=== PATIENT | male | born 1945 | race Caucasian/White ===

== ENCOUNTER 2021-08-04 08:12 | Outpatient (CLI) | payer OTHER, SELFPAY ==
--- NOTE | 2021-08-04 08:23 | US_ITS ---
WS: [id number] RENAL ULTRASOUND HISTORY: STAGE 2B CHRONIC KIDNEY DZ COMPARISON: None available. TECHNIQUE: 2-D and color Doppler imaging of the kidney submitted. Right kidney: 10.6 cm x 3.7 cm x 3.8 cm. Normal size kidney. Echogenicity is equal to the adjacent liver. Cortical thinning and scarring in th e mid kidney. There are numerous cystic masses closely associated with the kidney. These are probably renal cysts but due to their large size exact location is difficult. These cystic masses do connect to the kidney. The largest from the mid kidney measures 12.6 x 9.2 x 10.4 cm. No solid component. No hydronephrosis. Left kidney: 10.9 cm x 5.4 cm x 6.9 cm. Normal size but increased echogenicity throughout the kidney. Numerous cystic masses are noted. The l argest cyst in the upper pole measures 4.5 x 5.1 x 3.5 cm. Aorta: Limited visualization. Urinary Bladder: Minimally distended urinary bladder. No intraluminal filling defect. US/US renal BI* [id number] IMPRESSION: 1. No hydronephrosis. 2. Numerous bilateral renal cysts. Some of these cysts or very large and conta in low-level echoes. 3. Mild medical renal disease LEFT kidney. 4. Focal scarring cortical thinning in the mid RIGHT kidney.
== END 2021-08-04 08:13 | disposition home or self-care (01) ==
PROVIDERS: Visit Provider Internal Medicine Nephrology
DX: N18.32 Chronic kidney disease, stage 3b (principal); Q61.02 Congenital multiple renal cysts
CPT/HCPCS: 76770

== ENCOUNTER 2021-09-09 11:57 | Outpatient (CLI) | payer OTHER, SELFPAY ==
--- NOTE | 2021-09-09 12:02 | CTR_ITS ---
PROCEDURE INFORMATION: Exam: CT Abdomen And Pelvis Without Contrast Exam date and time: 09/09/2021 12:23 PM Age: 76 years old Clinical indication: Condition or disease; Kidney or ureter condition; Chronic kidney disease or failure; Ckd stage 3 (moderate); Primary cancer: Rectal and throat cancer; Additional info: Stage 3b ckd, mob TECHNIQUE: Imaging protocol: Computed tomography of the abdomen and pelvis without contrast. Radiation optimization: All CT scans at this facility use at least one of these dose optimization techniques: automated exposure control; mA and/or kV adjustment per patient size (includes targeted exams where dose is matched to clinical indication); or iterative reconstruction. COMPARISON: US renal BI* [id number] 08/04/2021 8:56 AM RADIATION DOSE METRICS: Total DLP (mGy-cm): 1046.09 FINDINGS: Lungs: Emphysematous changes suspected. Liver: Normal. No mass. Gallbladder and bile ducts: Cholelithiasis. Pancreas: Normal. No ductal dilation. Spleen: Normal. No splenomegaly. Adrenal glands: Normal. No mass. Kidneys and ureters: Bilateral renal cysts, some of which appear hyperdense, negative for follow-up advised. Stomach and bowel: Constipation. Appendix: No evidence of appendicitis. Intraperitoneal space: Unremarkable. No free air. No significant fluid collection. Vasculature: Minimal fusiform abdominal aortic aneurysmal dilation to 2.2 cm with atherosclerotic calcifications, negative for findings of rupture Lymph nodes: Unremarkable. No enlarged lymph nodes. Urinary bladder: Unremarkable as visualized. Reproductive: Prostate gland somewhat prominent. Bones/joints: Unremarkable. No acute fracture. Soft tissues: Small bilateral inguinal hernias containing fat without bowel or inflammation. CT/CT abdomen pelvis wo con [id number] IMPRESSION: 1. Negative for mass lesion or adenopathy. 2. Emphysematous changes suspected. 3. Bilateral renal cysts, some of which appear hyperdense, negative for follow-up advised. 4. Constipation. 5. Cholelithiasis. 6. Prostate gland somewhat prominent. 7. Small bilateral inguinal hernias containing fat without bowel or inflammation. 8. Minimal fusiform abdominal aortic aneurysmal dilation to 2.2 cm with atherosclerotic calcifications, negative for findings of rupture
== END 2021-09-09 11:58 | disposition home or self-care (01) ==
LOC: RAD 11:58
PROVIDERS: Visit Provider Internal Medicine Nephrology
DX: N18.32 Chronic kidney disease, stage 3b (principal); Q61.02 Congenital multiple renal cysts; K59.00 Constipation, unspecified; K80.20 Calculus of gallbladder without cholecystitis without obstruction; K40.20 Bilateral inguinal hernia, without obstruction or gangrene, not specified as recurrent; I71.4 Abdominal aortic aneurysm, without rupture
CPT/HCPCS: 74176

== ENCOUNTER 2022-02-22 06:05 | Outpatient (CLI) | payer OTHER, SELFPAY ==
--- NOTE | 2022-02-22 | USCV_ITS ---
Sukhwinder Sheets Age: 76 Gender: M : 1945 Exam Date: 02/22/2022 06:31 Ordering Phys: Carroll Toro DO Technologist: Exam Location: [facility] Indication: screening HISTORY: Diameter (cm) AP x Transverse x Length Velocity (cm/s) Waveform Prox Aorta: 1.61 x 2.27 x 75.20 Mid Aorta: 2.20 x 2.15 x 78.50 Distal Aorta: 1.01 x 2.16 x 68.60 Right Iliac Prox: 1.33 x 1.18 x 117.30 Left Iliac Prox: 0.59 x 1.30 x 100.80 Stent Prox Landing x x Aneurysmal Sac Max x x Lt Lat Sac Dim Rt Lat Sac Dim Stent Dist Landing x x Right Iliac Stent x x Left Iliac Stent x x Right Renal Art Left Renal Art FINDINGS: Comparison: none available. No evidence of abdominal aortic aneurysm. Ectatic abdominal aorta with evidence of atherosclerotic plaque noted. There is evidence of atherosclerotic plaque no significan stenosis in the right common iliac artery. There is evidence of atherosclerotic plaque no significan stenosis in the left common iliac artery. CONCLUSIONS No evidence of abdominal aortic aneurysm. Dr. Maureen Leigh DO (Electronically Signed) Final Date: 22 February 2022 07:59 S
== END 2022-02-22 06:06 | disposition home or self-care (01) ==
LOC: RAD 06:06
PROVIDERS: PCP Emergency Medicine Emergency Medical Services; Visit Provider Emergency Medicine Emergency Medical Services
DX: Z13.6 Encounter for screening for cardiovascular disorders (principal)
CPT/HCPCS: 76706

== ENCOUNTER → 2022-06-29 15:12 | Outpatient (BNVA) | payer OTHER, SELFPAY | PROVIDERS: PCP Emergency Medicine Emergency Medical Services; Visit Provider Orthopaedic Surgery | DX: Z89.511 Acquired absence of right leg below knee (principal) | CPT/HCPCS: 99203 ==

== ENCOUNTER → 2022-12-26 13:39 | Outpatient (BNVA) | payer OTHER, SELFPAY | PROVIDERS: PCP Emergency Medicine Emergency Medical Services; Visit Provider Nurse Practitioner Family | DX: L85.3 Xerosis cutis (principal); L57.8 Other skin changes due to chronic exposure to nonionizing radiation; L57.0 Actinic keratosis; D22.5 Melanocytic nevi of trunk; L81.4 Other melanin hyperpigmentation; Z85.828 Personal history of other malignant neoplasm of skin; Z72.0 Tobacco use; Z71.89 Other specified counseling | CPT/HCPCS: 17004; 99203 ==

== ENCOUNTER → 2023-06-29 14:10 | Outpatient (BNVA) | payer OTHER, SELFPAY | PROVIDERS: PCP Emergency Medicine Emergency Medical Services; Visit Provider Nurse Practitioner Family | DX: L57.0 Actinic keratosis (principal); L85.3 Xerosis cutis; L57.8 Other skin changes due to chronic exposure to nonionizing radiation; Z85.828 Personal history of other malignant neoplasm of skin; D22.5 Melanocytic nevi of trunk; L81.4 Other melanin hyperpigmentation; D48.5 Neoplasm of uncertain behavior of skin | CPT/HCPCS: 11102; 17004; 99214 ==

== ENCOUNTER → 2023-09-25 09:38 | Outpatient (BNVA) | payer OTHER, SELFPAY | PROVIDERS: PCP Emergency Medicine Emergency Medical Services; Visit Provider Nurse Practitioner Family | DX: L57.0 Actinic keratosis (principal); L85.3 Xerosis cutis; L57.8 Other skin changes due to chronic exposure to nonionizing radiation; Z85.828 Personal history of other malignant neoplasm of skin; D22.5 Melanocytic nevi of trunk | CPT/HCPCS: 11102; 17000; 99213 ==

== ENCOUNTER → 2023-10-13 09:33 | Outpatient (BNVA) | payer OTHER, SELFPAY | PROVIDERS: PCP Emergency Medicine Emergency Medical Services; Visit Provider Dermatology | DX: C44.629 Squamous cell carcinoma of skin of left upper limb, including shoulder (principal) | CPT/HCPCS: 13121; 17313 ==

== ENCOUNTER 2023-12-18 07:48 | Outpatient (CLI) | payer OTHER, SELFPAY ==
--- NOTE | 2023-12-18 07:51 | CTR_ITS ---
PROCEDURE INFORMATION: Exam: CT Neck With Contrast Exam date and time: 12/18/2023 8:27 AM Age: 78 years old Clinical indication: Dysphagia / difficulty swallowing; Prior surgery; Surgery date: 6+ months; Patient HX: HX of throat cancer, difficulty swallowing in last 9 weeks with weight loss; Additional info: New nodule on throat x 6 weeks TECHNIQUE: Imaging protocol: Computed tomography of the neck with contrast. Radiation optimization: All CT scans at this facility use at least one of these dose optimization techniques: automated exposure control; mA and/or kV adjustment per patient size (includes targeted exams where dose is matched to clinical indication); or iterative reconstruction. Contrast material: OMNI 350; Contrast volume: 100 ml; Contrast route: INTRAVENOUS (IV); COMPARISON: MRI Neck/Face/Orbit w/wo [id number] 07/23/2018 11:20 AM RADIATION DOSE METRICS: Total DLP (mGy-cm): 147.9 FINDINGS: Salivary glands: Normal. Glands are normal in size. Pharynx: Unremarkable. No significant tonsillar enlargement. Prevertebral and retropharyngeal spaces: Soft tissue thickening/edema and retropharyngeal region possibly also extending to the cervical esophagus. Larynx: Unremarkable. Epiglottis is normal. Thyroid: Normal. No enlarged or calcified nodules. Trachea: Visualized trachea is unremarkable. Lungs: Unremarkable as visualized. Lymph nodes: Unremarkable. No lymphadenopathy. Vasculature: Somewhat irregular, possibly ulcerated plaque in the distal aortic arch, beyond the origin of the left subclavian artery. Bones/joints: Degenerative changes of the cervical spine with possible stenosis C5-C6. Soft tissues: Unremarkable. No significant soft tissue swelling. CT/CT neck w con* [id number] IMPRESSION: 1. Soft tissue thickening/edema and retropharyngeal region possibly also extending to the cervical esophagus. No definite mass lesion. Consider pharyngitis/esophagitis. 2. Somewhat irregular, possibly ulcerated plaque in the distal aortic arch, beyond the origin of the left subclavian artery.
[2023-12-18] MEDS: iohexol 350 mg/mL 500 mL Btl (per mL) IV (08:44)
== END 2023-12-18 07:49 | disposition home or self-care (01) ==
LOC: RAD 07:48
PROVIDERS: PCP Family Medicine; Visit Provider Family Medicine
DX: J38.4 Edema of larynx (principal); R13.10 Dysphagia, unspecified; Z85.21 Personal history of malignant neoplasm of larynx
CPT/HCPCS: 70491; Q9967

== ENCOUNTER 2024-01-24 17:36 | Observation (INO) | payer OTHER, SELFPAY ==
[2024-01-24 17:44] VITALS: BP 131/75; PULSE 83; RESP 18; TEMP 36.6; O2SAT 96
[2024-01-24 18:32] LABS: Basophils % 0.4 %; Eosinophils # 0.2 10^3/uL (0.0-0.8); Eosinophils % 3.4 %; Hematocrit 32.3 % (37-53); Lymphocytes # 1.5 10^3/uL (0.8-4.8); Lymphocytes % 22.4 %; Mean Corpuscular Hemoglobin 28.7 pg (27-33); Mean Corpuscular Volume 92.6 fl (82-101); Mean Platelet Volume 10.1 fL (7.4-10.4); Monocytes # 0.7 10^3/uL (0.2-0.9); Monocytes % 10.5 %; Neutrophils # 4.23 10^3/uL (1.8-7.7); Nucleated Red Blood Cells % 0 %; Platelet Count 128 10^3/cmm (157-399); Red Blood Count 3.49 10^6/uL (3.85-5.65); Red Cell Distribution Width 15.3 % (12.1-15.1); White Blood Count 6.73 10^3/uL (3.29-11.43)
[2024-01-24 18:54] LABS: Alanine Aminotransferase 12 U/L (0-41); Albumin Level 3.8 g/dL (3.5-5.2); Alkaline Phosphatase 69 U/L (40-130); Anion Gap 13.2 (5-19); Aspartate Amino Transferase 15 U/L (0-40); Blood Urea Nitrogen 37 mg/dL (8-23); Calcium 10.1 mg/dL (8.5-10.5); Carbon Dioxide 30 mmol/L (22-29); Chloride 109 mmol/L (98-107); Creatinine Clr Calc Pharmacy 43.9134; Globulin 3.1 g/dL (1.3-4.6); Glucose 103 mg/dL (65-115); Osmolality Calculated 315 mOsm/kg (285-295); Potassium 4.2 mmol/L (3.5-5.1); Sodium 148 mmol/L (136-145); Total Bilirubin 0.4 mg/dL (0.15-1.2); Total Protein 6.9 g/dL (6.6-8.7)
--- NOTE | 2024-01-24 18:59 | W.ED.GENADLT ---
HPI - General Adult General: Chief complaint: General Medical Stated complaint: Peg tube, Abd Pain Time Seen by Provider: 01/24/24 18:03 History of Present Illness: Patient is a 78-year-old gentleman who has a history of esophageal cancer and had a gastrostomy tube placed at [facility] 8 days ago on January 15. Patient states that his gastrostomy tube became dislodged approximately an hour before arrival today. He has no other acute complaints. Associated symptoms: Deny chest pain, dyspnea, nausea or vomiting Review of Systems Const: Denies: fever(s) or chills Card: Denies: chest pain Resp: Denies: dyspnea GI: Denies: abdominal pain, nausea or vomiting [facility] ED PFSH: Medical History History of gastrostomy tube placement Esophageal cancer No pertinent past medical history Amputation above knee Social History Smoking and tobacco/nicotine status: current every day tobacco/nicotine user Physical Exam Narrative: EXAM NARRATIVE: Nontoxic 78-year-old gentleman with right below-knee amputation Const: COMMON NORMALS: no acute distress, alert and well nourished HENMT: COMMON NORMALS: normocephalic and atraumatic HEAD & SCALP: normal to inspection, normocephalic and atraumatic Chest: Breast/axilla inspection: Yes no chest deformity, asymmetry, normal contours, no nodules, masses, tenderness Resp: COMMON NORMALS: normal respiratory effort and No retractions GI: COMMON NORMALS: Normal to inspection, nondistended, normoactive bowel sounds present OTHER: Patient has gastrostomy tube at bedside that is dislodged. Gastrostomy site in the abdominal wall noted with out any significant drainage or discharge. Extremity: COMMON NORMALS: normal to inspection and no pedal edema OTHER: Right BKA Neuro: SENSORIUM/ORIENTATION: Yes alert Course ED course: Dr. Power general surgery was consulted and request hospitalist admission. Vital Signs: Vital signs: Vital Signs Temperature 97.8 F 01/24/24 17:44 Pulse Rate 77 01/24/24 19:12 Respiratory Rate 16 01/24/24 19:12 Blood Pressure 144/77 01/24/24 19:12 Pulse Oximetry 95 01/24/24 19:12 Oxygen Delivery Me thod Room Air 01/24/24 19:12 MDM - General Adult Medical Decision Making Patient is a nontoxic 78-year-old gentleman with a history of esophageal cancer who had a gastrostomy tube placed at [facility] 8 days ago. Patient's gastrostomy tube became dislodged today about 1 hour before arrival. I spoke with Dr. Power with general surgery who request hospitalist admission and will plan to replace the gastrostomy tube tomorrow Lab Data 01/24/24 18:23 01/24/24 18:23 Laboratory Results WBC 6.73 10^3/uL (3.29-11.43) 01/24/24 18:23 RBC 3.49 10^6/uL (3.85-5.65) L 01/24/24 18:23 Hgb 10.00 g/dL (11.27-16.99) L 01/24/24 18:23 Hct 32.3 % (37-53) L 01/24/24 18:23 MCV 92.6 fl (82-101) 01/24/24 18:23 MCH 28.7 pg (27-33) 01/24/24 18:23 MCHC 31.0 g/dL (30-55) 01/24/24 18:23 RDW 15.3 % (12.1-15.1) H 01/24/24 18:23 Plt Count 128 10^3/cmm (157-399) L 01/24/24 18:23 MPV 10.1 fL (7.4-10.4) 01/24/24 18:23 Neut % (Auto) 63.0 % 01/24/24 18:23 Lymph % (Auto) 22.4 % 01/24/24 18:23 Liberty % (Auto) 10.5 % 01/24/24 18:23 Eos % (Auto) 3.4 % 01/24/24 18:23 Baso % (Auto) 0.4 % 01/24/24 18:23 Neut # (Auto) 4.23 10^3/uL (1.8-7.7) 01/24/24 18:23 Lymph # (Auto) 1.5 10^3/uL (0.8-4.8) 01/24/24 18:23 Liberty # (Auto) 0.7 10^3/uL (0.2-0.9) 01/24/24 18:23 Eos # (Auto) 0.2 10^3/uL (0.0-0.8) 01/24/24 18:23 Baso # (Auto) 0.0 10^3/uL (0.0-0.1) 01/24/24 18:23 Nucleated RBC % (auto) 0 % 01/24/24 18:23 Nucleated RBCs # 0.0 /100WBC 01/24/24 18:23 Sodium 148 mmol/L (136-145) H 01/24/24 18:23 Potassium 4.2 mmol/L (3.5-5.1) 01/24/24 18:23 Chloride 109 mmol/L (98-107) H 01/24/24 18:23 Carbon Dioxide 30 mmol/L (22-29) H 01/24/24 18:23 Anion Gap 13.2 (5-19) 01/24/24 18:23 BUN 37 mg/dL (8-23) H 01/24/24 18:23 Creatinine 1.3 mg/dL (0.7-1.2) H 01/24/24 18:23 GFR Calculation Not Reportable 01/24/24 18:23 Glucose 103 mg/dL (65-115) 01/24/24 18:23 Calculated Osmolality 315 mOsm/kg (285-295) H 01/24/24 18:23 Calcium 10.1 mg/dL (8.5-10.5) 01/24/24 18:23 Total Bilirubin 0.4 mg/dL (0.15-1.2) 01/24/24 18:23 AST 15 U/L (0-40) 01/24/24 18:23 ALT 12 U/L (0-41) 01/24/24 18:23 Alkaline Phosphatase 69 U/L (40-130) 01/24/24 18:23 Total Protein 6.9 g/dL (6.6-8.7) 01/24/24 18:23 Albumin 3.8 g/dL (3.5-5.2) 01/24/24 18:23 Globulin 3.1 g/dL (1.3-4.6) 01/24/24 18:23 No radiology studies performed this visit Discharge Plan Discharge Patient Disposition: Admitted As Inpatient Clinical Impression: Complication of gastrostomy tube Condition: Stable Coding Level of Care Code ED Prep[employer] 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
[2024-01-24 19:12] VITALS: BP 144/77; PULSE 77; RESP 16; O2SAT 95
--- NOTE | 2024-01-24 19:27 | PM.HP ---
Providers/Chief Complaint Primary Care Provider: Althea Sterling MD Chief Complaint: Peg tube, Abd Pain History of Present Illness Sukhwinder Sheets is a 78 year old male with history of esophageal cancer status post PEG tube placement at [facility] 8 days ago presented today after his PEG tube got dislodged. Patient is not able to eat anything through oral route, he is not clinically dehydrated, Dr. Power has been consulted who is planning for reinsertion of PEG tube in the morning. Patient will stay n.p.o. we will start D5 LR. No active chest pain shortness of breath, no active nausea or vomiting. Patient hemodynamically stable he will be admitted to [facility]. Hospital service has been requested to admit the patient. Patient is stating that he had first recurrence of esophageal cancer in 2016 and second occurrence happened this year, he is due for second biopsy in [place] his oncologist is in [place] for now He was following with Dr. Oconnell in the past He is not sure if there is any plan for chemo or radiation, PEG tube was placed to provide adequate hydration and nutrition He recently quit smoking 8 weeks ago Review of Systems Const: Denies: fever(s) Eyes: Denies: change in vision ENMT: Denies: throat pain Card: Denies: chest pain Resp: Reports: dyspnea GI: Denies: abdominal pain : Denies: flank pain Musc: Denies: neck pain Medications/Allergies Home Medications Medication Instructions Recorded Confirmed Last Taken Type mupirocin 2 % topical ointment 1 applic topical BID #22 grams 04/12/22 06/29/22 Unknown Rx Allergies Allergy/AdvReac Type Severity Reaction Status Date / Time No Known Allergies Allergy Verified 06/29/22 15:44 PFSH Acute PFSH: Medical History (Updated 01/24/24 @ 19:55 by Camilo Ovalle MD) Below knee amputation History of gastrostomy tube placement Esophageal cancer No pertinent past medical history Amputation above knee Social History Smoking and tobacco/nicotine status: current every day tobacco/nicotine user Vitals/I&O/Wt Last Vital Signs Temp 97.8 F 01/24/24 17:44 Pulse 77 01/24/24 19:12 Resp 16 01/24/24 19:12 BP 144/77 01/24/24 19:12 Pulse Ox 95 01/24/24 19:12 O2 Del Method Room Air 01/24/24 19:12 Weight last 48 hrs Weight 63.957 kg Physical Exam Narrative: Patient is pleasant cooperative Dehydrated Awake and alert Currently on room air Hemodynamic stable PEG tube button in place Abdomen soft at the bedside Patient has right below-knee amputation history S1, S2 Nonfocal neuroexam Data 01/24/24 18:23 01/24/24 18:23 A&P Assessment and plan (1) PEG tube malfunction: (2) Acute hypernatremia: (3) Dehydration: (4) Complication of gastrostomy tube: Plan PEG tube dislodged It was placed 8 days ago at [facility] Dr. Power consulted N.p.o. after midnight Will start D5 LR No need of antibiotics at this point Admit to [facility] DVT prophylaxis: SCDs DuoNeb and Tylenol on as-needed basis Patient has recently quit smoking I would prescribe appropriate inhalers for COPD Currently he is not on any oxygen Full code Attestations Medical Necessity Statement*: Anticipate discharge within 48 hours Diagnoses PEG tube malfunction K94.23 Acute hypernatremia E87.0 Dehydration E86.0 Complication of gastrostomy tube K94.20
[2024-01-24 20:00] VITALS: BP 144/77; RESP 18; O2SAT 95
[2024-01-24 20:46] VITALS: BP 144/77; PULSE 77; RESP 18; TEMP 36.6; O2SAT 95
[2024-01-24] MEDS: dextrose 5%-lactated ringers 1,000 ML 75 ML IV (22:59)
[2024-01-24 23:29] VITALS: BMI 22.1
[2024-01-25] VITALS (17 sets, daily range): BP systolic 130–169; BP diastolic 69–94; PULSE 71–93; RESP 15–24; TEMP 36.5–37.1; O2SAT 94–99
[2024-01-25] MEDS: hyDRALAzine 20 mg/mL INJ 1 mL 5 MG IVP (00:40)
[2024-01-25] MEDS: morphine 4 mg/mL SDV 1 mL IVP (05:03)
[2024-01-25 05:33] LABS: Basophils % 0.6 %; Eosinophils # 0.3 10^3/uL (0.0-0.8); Eosinophils % 5.5 %; Hematocrit 33.1 % (37-53); Lymphocytes # 1.7 10^3/uL (0.8-4.8); Lymphocytes % 27.5 %; Mean Corpuscular HGB Conc 31.4 g/dL (30-55); Mean Corpuscular Hemoglobin 28.7 pg (27-33); Mean Corpuscular Volume 91.4 fl (82-101); Monocytes # 0.6 10^3/uL (0.2-0.9); Monocytes % 10.2 %; Neutrophils # 3.46 10^3/uL (1.8-7.7); Neutrophils % 55.9 %; Nucleated Red Blood Cells % 0 %; Platelet Count 138 10^3/cmm (157-399); Red Blood Count 3.62 10^6/uL (3.85-5.65); Red Cell Distribution Width 15.2 % (12.1-15.1); White Blood Count 6.19 10^3/uL (3.29-11.43)
[2024-01-25 05:52] LABS: Blood Urea Nitrogen 30 mg/dL (8-23); C Reactive Protein 16.6 mg/L (0.0-4.9); Calcium 9.5 mg/dL (8.5-10.5); Carbon Dioxide 25 mmol/L (22-29); Chloride 110 mmol/L (98-107); Glucose 126 mg/dL (65-115); Osmolality Calculated 310 mOsm/kg (285-295); Phosphorus 2.8 mg/dL (2.5-4.5); Sodium 146 mmol/L (136-145)
--- NOTE | 2024-01-25 08:58 | PC.CHAP ---
Pastoral Care Encounter/Spiritual Assessment Type of Contact [] Declined structures technician visit [] Patient/Family/Request visit [] Outpatient visit [] Follow-up visit [] Physician referral [] Code/Alert [] Routine visit [] Staff referral [] Actively dying [x] Patient sleeping [] Family support [] [] Out of room [] Palliative care [] [] Receiving care in room [] Pre-surgical visit [] Trauma [] Long length of stay [] ICU visit [] Other: Relational/Emotional Strength [] Patient feels connected with others/family/visitors/staff [] Distress [] Loneliness/isolation [] Abandonment Spirituality of Patient [] Person of Samanta [] Attends Zoroastrianism of their Sam[place] [] Believes in Prayer [] Reads Bible or Mu-Ism materials [] There are Spiritual issues to be addressed Hand Embroiderer Interventions [] Prayer [] Active listening [] Non-anxious presence [] Spiritual/emotional support [] Crisis/trauma care [] Spiritual counseling [] Bereavement support [] Provided bereavement packet [] Provided Bible/devotional materials [] Provided toy/stuffed animal, coloring book to patient or family member [] Provided Communion [] Anointing/[place] [] Salvation [] Completed spiritual assessment [] Other: Impact on Illness or Injury [] Angry [] Fearful [] Anxious [] Often cries [] Exhaustion [] Unable to work [] Unable to attend yazdanism [] Unable to walk/stand [] Unable to read [] Unable to drive [] Unable to eat/drink [] Unable to sleep [] Unable to be with family [] Patient intubated [] Other: Summary Time spent with patient
[2024-01-25] MEDS: pantoprazole 40 mg SDV IVP (09:05)
--- NOTE | 2024-01-25 09:07 | PC.PHAR ---
[facility] AND [facility]-FAXING FOR MED LIST 01/25/24 9:08AM
--- NOTE | 2024-01-25 11:05 | P.PN_ITS ---
Subjective 2 Subjective: Patient is going for PEG tube placement around 2:30 PM No active complaints GCS 15 Afebrile Hemodynamically stable No overnight events Sodium 146 Vitals/I&O/Wt Last Vital Signs Temp 98.2 F 01/25/24 07:44 Pulse 77 01/25/24 08:01 Resp 18 01/25/24 08:01 BP 133/71 01/25/24 07:44 Pulse Ox 95 01/25/24 08:01 O2 Del Method Room Air 01/25/24 08:01 01/24/24 01/25/24 01/25/24 22:59 06:59 14:59 Output Total 250 / 250 Balance -250 / -250 Weight last 48 hrs Weight 60.073 kg Weight 63.957 kg Weight 63.957 kg Physical Exam 2 Narrative: Signs of dehydration present Pleasant cooperative Watching television Nonfocal neuroexam Hemodynamically stable Awake and alert Data 01/25/24 05:27 01/25/24 05:27 A&P Assessment and plan (1) Complication of gastrostomy tube: (2) PEG tube malfunction: (3) Acute hypernatremia: (4) Dehydration: Plan Patient most likely will be discharged by tomorrow we are planning for PEG tube placement today, after 16 to 24 hours will do trial of liquid diet and if patient tolerates well he will be able to go home on 01/25 For dehydration continue D5 IV fluids No need of antibiotics at this point Full code N.p.o. Attestations 2 Medical Necessity Statement*: Planning to discharge by tomorrow Diagnoses Complication of gastrostomy tube K94.20 PEG tube malfunction K94.23 Acute hypernatremia E87.0 Dehydration E86.0
[2024-01-25] MEDS: dextrose 5%-lactated ringers 1,000 ML 75 ML IV (13:43)
[2024-01-25] MEDS: sodium chloride 0.9% 1,000 ML 30 ML IV (15:46)
--- NOTE | 2024-01-25 15:47 | P.ANESASSM_ITS ---
Pre-Anesthetic Assessment Height/Weight: Height 1.7 m Weight 60.073 kg Temp Pulse Resp BP Pulse Ox O2 Del Method 98.8 F 77 18 130/79 96 Room Air 01/25/24 15:42 01/25/24 15:42 01/25/24 15:42 01/25/24 15:42 01/25/24 15:42 01/25/24 15:42 Operation Date: 01/25/24 14:30 Proposed Procedures p PEG Tube Insertion(Not Applicable) - Brady Power DO Familial anesthetic complications: None Was Beta Jodie taken within 24 hours: N/A Was Clonidine taken within 24 hours: N/A Last intake: > 8hrs Social No alcohol and No tobacco Exam alert, oriented x 3, clear to auscultation bilaterally and regular rate & rhythm Airway Mallampati: Class III Dentition: full Comments: Comments: Hx esophageal cancer s/pt surgery X 2 Neck MRI 07/23/2018OPINION: 1. No evidence of a tongue base lesion or other neoplastic process of the soft tissue neck on this exam. 2. Mastoid air cell effusions, right greater than left. 3. Mild right maxillary sinusitis. 4. Right lobe thyroid nodule. Further evaluation could include ultrasound of the thyroid gland. 5. C5-C6 spondylosis. 07/04/[address] IMPRESSION: 1. Prominent increased soft tissue thickening at the tongue base on the RIGHT extending into the right hypopharynx suspicious for neoplasm. Images at this level are degraded due to dental artifact. Recommend further evaluation with endoscopy and PET/CT. 2. 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 3. No cervical lymphadenopathy. 4. Palpable marker in the left lower neck overlying the sternocleidomastoid. No evidence of pathologic mass or lesion in this area. 5. Stable 12 mm low-attenuation right thyroid nodule. CT neck 12/17 w/ dysphagia CT/CT neck w con* [id number] IMPRESSION: 1. Soft tissue thickening/edema and retropharyngeal region possibly also extending to the cervical esophagus. No definite mass lesion. Consider pharyngitis/esophagitis. 2. Somewhat irregular, possibly ulcerated plaque in the distal aortic arch, beyond the origin of the left subclavian artery. CV/HEM Hypertension Metabolic hypernatremia Anesthetic Plan ASA status: 4 Anesthesia: MAC Risk of > 500 ml blood loss (7ml/kg in children): No Medications/Allergies Home Medications Medication Instructions Recorded Confirmed Last Taken Type hydrochlorothiazide 25 mg tablet 25 mg PO DAILY 01/25/24 01/25/24 Unknown History metoprolol tartrate 100 mg tablet 50 mg PO BID 01/25/24 01/25/24 Unknown History potassium chloride 20 mEq 20 meq PO BID 01/25/24 01/25/24 Unknown History tablet,extended release simvastatin 40 mg tablet 20 mg PO QPM 01/25/24 01/25/24 Unknown History Allergies Allergy/AdvReac Type Severity Reaction Status Date / Time No Known Allergies Allergy Verified 06/29/22 15:44 Current Medications Generic Name Dose Route Start Last Admin Trade Name Freq PRN Reason Stop Dose Admin Dextrose/Lactated Ringer's 1,000 mls @ 75 mls/hr 01/24/24 21:36 01/25/24 13:43 Dextrose 5%-Lactated Ringers IV 75 mls/hr .[id number] HANSEL Administration Sodium Chloride 1,000 mls @ 30 mls/hr 01/25/24 15:45 01/25/24 15:46 Sodium Chloride 0.9% IV 01/26/24 15:44 30 mls/hr .[id number] HANSEL Administration Pantoprazole Sodium 40 mg 01/25/24 09:00 01/25/24 09:05 Pantoprazole 40 Mg Sdv IVP 40 mg BID HANSEL Administration PFSH Anesthesia Medical History (Updated 01/24/24 @ 19:55 by Camilo Ovlale MD) Below knee amputation History of gastrostomy tube placement Esophageal cancer No pertinent past medical history Amputation above knee Social History Smoking and tobacco/nicotine status: current every day tobacco/nicotine user Data Anesthesia 01/25/24 05:27 01/25/24 05:27 Short CBC 01/24/24 01/25/24 Range/Units 18:23 05:27 WBC 6.73 6.19 (3.29-11.43) 10^3/uL Hgb 10.00 L 10.40 L (11.27-16.99) g/dL Hct 32.3 L 33.1 L (37-53) % MCV 92.6 91.4 (82-101) fl Plt Count 128 L 138 L (157-399) 10^3/cmm Neut % (Auto) 63.0 55.9 % Neut # (Auto) 4.23 3.46 (1.8-7.7) 10^3/uL BMP 01/24/24 01/25/24 18:23 05:27 Sodium 148 H 146 H Potassium 4.2 4.0 Chloride 109 H 110 H Carbon Dioxide 30 H 25 BUN 37 H 30 H Creatinine 1.3 H 1.2 Glucose 103 126 H Calcium 10.1 9.5 Liver Function 01/24/24 Range/Units 18:23 Total Bilirubin 0.4 (0.15-1.2) mg/dL AST 15 (0-40) U/L ALT 12 (0-41) U/L Alkaline Phosphatase 69 (40-130) U/L Albumin 3.8 (3.5-5.2) g/dL Coags 01/25/24 05:27 C-Reactive Protein 16.6 H Cardiac Studies: 2 No Data to Display
--- NOTE | 2024-01-25 16:30 | P.CONIM_ITS ---
Providers/Reason For Consult 2 Consulting Physician/Specialty*: Dr. Brady Power DO/General surgery Reason for Consult*: PEG tube placement Attending Physician: Camilo Ovalle MD Primary Care Provider: Althea Sterling MD History of Present Illness History of Present Illness Sukhwinder Sheets is a 78 year old male who comes in because he excellently pulled out his PEG tube. He needs replacement. He denies any abdominal pain, nausea, emesis, diarrhea, constipation, hematochezia and/or melena. Review of Systems 2 General: Reports: 10 or more systems reviewed and unremarkable except in HPI and below Medications/Allergies Home Medications Medication Instructions Recorded Confirmed Last Taken Type hydrochlorothiazide 25 mg tablet 25 mg PO DAILY 01/25/24 01/25/24 Unknown History metoprolol tartrate 100 mg tablet 50 mg PO BID 01/25/24 01/25/24 Unknown History potassium chloride 20 mEq 20 meq PO BID 01/25/24 01/25/24 Unknown History tablet,extended release simvastatin 40 mg tablet 20 mg PO QPM 01/25/24 01/25/24 Unknown History Allergies Allergy/AdvReac Type Severity Reaction Status Date / Time No Known Allergies Allergy Verified 06/29/22 15:44 Current Medications Generic Name Dose Route Start Last Admin Trade Name Freq PRN Reason Stop Dose Admin Dextrose/Lactated Ringer's 1,000 mls @ 75 mls/hr 01/24/24 21:36 01/25/24 13:43 Dextrose 5%-Lactated Ringers IV 75 mls/hr .[id number] HANSEL Administration Sodium Chloride 1,000 mls @ 30 mls/hr 01/25/24 15:45 01/25/24 15:46 Sodium Chloride 0.9% IV 01/26/24 15:44 30 mls/hr .[id number] HANSEL Administration Pantoprazole Sodium 40 mg 01/25/24 09:00 01/25/24 09:05 Pantoprazole 40 Mg Sdv IVP 40 mg BID HANSEL Administration PFSH Acute 2 PFSH: Medical History Below knee amputation History of gastrostomy tube placement Esophageal cancer No pertinent past medical history Amputation above knee Social History Smoking and tobacco/nicotine status: current every day tobacco/nicotine user Vitals/I&O/Wt Last Vital Signs Temp 98.8 F 01/25/24 15:42 Pulse 77 01/25/24 15:42 Resp 18 01/25/24 15:42 BP 130/79 01/25/24 15:42 Pulse Ox 96 01/25/24 15:42 O2 Del Method Room Air 01/25/24 15:42 01/25/24 01/25/24 01/25/24 06:59 14:59 22:59 Intake Total 1000 / 1000 Output Total 250 / 250 Balance -250 / -250 1000 / 1000 Weight last 48 hrs Weight 132 lb 7 oz Weight 141 lb Weight 141 lb Physical Exam 2 Narrative: General : Patient is well developed , no acute distress, oriented x3 Head : Normal cephalic, a-traumatic. Ears : Pinnae and external canal are normal. Hearing is normal. Eyes : PERRLA, Sclera and injection are normal. No conjunctival discharge. Nose : Mucous membranes are without erythema. Throat : buccal mucosa is normal, gums are without significant recession or hypertrophy. Lungs : Equal chest rise bilaterally, no use of accessory muscles, trachea is midline. Cor : Rate and rhythm are normal. Abdomen : Soft, ND, NT, no g/r/m Extremities : No edema, no cyanosis or clubbing, dorsalis pedis pulses are present bilaterally, non-tender to palpation of calves. Upper extremities are normal bilaterally. Back : non-tender to palpation, no CVA tenderness. Neuro : CN II - XII intact, Upper and lower extremities have equal and full strength Data 01/25/24 05:27 01/25/24 05:27 A&P Assessment and plan (1) Complication of gastrostomy tube: Plan PEG tube placement The risks and benefits of the procedure, including bleeding, infection, intestinal perforation requiring surgery, missed lesion were explained to the patient. The patient is understanding of the risks and wishes to proceed. Coding Level of Care Code 84991 Diagnoses Complication of gastrostomy tube K94.20
--- NOTE | 2024-01-25 17:30 | ANE.PACU2 ---
Inpatient post-anesthesia follow up: Airway intact: Yes Vital signs: Temperature 97.7 F Pulse Rate 75 Respiratory Rate 16 Blood Pressure 130/65 Pulse Oximetry 96 Oxygen Delivery Me thod Room Air Oxygen Flow Rate Fraction of Inspir ed Oxygen Hydration adequate: Yes Nausea and vomiting: No Pain level: 1 Mental status: Baseline
[2024-01-25] MEDS: morphine 4 mg/mL SDV 1 mL 2 MG IVP (21:50)
[2024-01-26 04:09] LABS: Anion Gap 14.2 (5-19); Blood Urea Nitrogen 25 mg/dL (8-23); Calcium 9.9 mg/dL (8.5-10.5); Carbon Dioxide 25 mmol/L (22-29); Chloride 110 mmol/L (98-107); Creatinine Clr Calc Pharmacy 50.6619; Glucose 181 mg/dL (65-115); Osmolality Calculated 309 mOsm/kg (285-295); Potassium 4.2 mmol/L (3.5-5.1); Sodium 145 mmol/L (136-145)
[2024-01-26 04:22] VITALS: BP 148/83; PULSE 76; RESP 17; TEMP 36.4; O2SAT 95
[2024-01-26] MEDS: dextrose 5%-lactated ringers 1,000 ML 75 ML IV (06:19)
[2024-01-26] MEDS: morphine 4 mg/mL SDV 1 mL 2 MG IVP (06:25)
[2024-01-26 07:13] VITALS: BP 130/65; PULSE 75; RESP 16; TEMP 36.5; O2SAT 96
--- NOTE | 2024-01-26 08:35 | P.PN_ITS ---
Subjective 2 Subjective: Patient seen and examined. Pain controlled Vitals/I&O/Wt Last Vital Signs Temp 97.7 F 01/26/24 07:13 Pulse 75 01/26/24 07:13 Resp 16 01/26/24 07:13 BP 130/65 01/26/24 07:13 Pulse Ox 96 01/26/24 07:13 O2 Del Method Room Air 01/26/24 07:13 01/25/24 01/26/24 01/26/24 22:59 06:59 14:59 Intake Total 0 / 1000 1000 / 2000 1000 / 1000 Output Total 600 / 600 Balance 0 / 1000 400 / 1400 1000 / 1000 Weight last 48 hrs Weight 132 lb 14.4 oz Weight 132 lb 7 oz Weight 141 lb Weight 141 lb Physical Exam 2 Narrative: General: No acute distress, awake alert and oriented x 3 Abdomen: Soft, nondistended, appropriately tender Data 01/25/24 05:27 01/26/24 03:30 A&P Assessment and plan (1) Complication of gastrostomy tube: Plan PEG tube placed yesterday Previous PEG tube attachments removed this morning He is okay to use his feeding tube at 5 PM today Surgically stable for discharge Medical management per hospitalist Attestations 2 Medical Necessity Statement*: Per primary Coding Level of Care Code 26651 Diagnoses Complication of gastrostomy tube K94.20
--- NOTE | 2024-01-26 09:53 | PM.DCS ---
Discharge Providers Date of Admission: 01/24/24 19:58 Date of Discharge: January 26, 2024 Attending Provider at Admission: Camilo Ovalle MD Attending Provider at Discharge: Camilo Ovalle MD Primary Care Provider: Althea Sterling MD Diagnoses at Discharge Discharge Diagnosis (1) Complication of gastrostomy tube: Status: Acute Reason for Visit Reason for Visit: Peg tube, Abd Pain Hospital Course Hospital Course 78-year-old male who was admitted for management evaluation of dislodged PEG tube, he had a PEG tube placed in [place] a week ago he carries history of esophageal cancer. Patient is having second recurrence of his cancer, he is due to get another biopsy to decide whether he would need further treatment. His oncologist is also in [place]. Patient remained hypertensive throughout hospitalization I have discontinued hydrochlorothiazide and added lisinopril along metoprolol. I have counseled patient on indications for antihypertensive regimen. He may start using his PEG tube around 5 PM today Physical Exam Narrative: Signs of dehydration improving Normotensive Awake and alert Nonfocal neuroexam GCS 15 Discharge Data Studies Completed and Pending Laboratory Results WBC 6.19 10^3/uL (3.29-11.43) 01/25/24 05:27 RBC 3.62 10^6/uL (3.85-5.65) L 01/25/24 05:27 Hgb 10.40 g/dL (11.27-16.99) L 01/25/24 05:27 Hct 33.1 % (37-53) L 01/25/24 05:27 MCV 91.4 fl (82-101) 01/25/24 05:27 MCH 28.7 pg (27-33) 01/25/24 05:27 MCHC 31.4 g/dL (30-55) 01/25/24 05:27 RDW 15.2 % (12.1-15.1) H 01/25/24 05:27 Plt Count 138 10^3/cmm (157-399) L 01/25/24 05:27 MPV 11.0 fL (7.4-10.4) H 01/25/24 05:27 Neut % (Auto) 55.9 % 01/25/24 05:27 Lymph % (Auto) 27.5 % 01/25/24 05:27 [place] % (Auto) 10.2 % 01/25/24 05:27 Eos % (Auto) 5.5 % 01/25/24 05:27 Baso % (Auto) 0.6 % 01/25/24 05:27 Neut # (Auto) 3.46 10^3/uL (1.8-7.7) 01/25/24 05:27 Lymph # (Auto) 1.7 10^3/uL (0.8-4.8) 01/25/24 05:27 [place] # (Auto) 0.6 10^3/uL (0.2-0.9) 01/25/24 05:27 Eos # (Auto) 0.3 10^3/uL (0.0-0.8) 01/25/24 05:27 Baso # (Auto) 0.0 10^3/uL (0.0-0.1) 01/25/24 05:27 Nucleated RBC % (auto) 0 % 01/25/24 05:27 Nucleated RBCs # 0.0 /100WBC 01/25/24 05:27 Sodium 145 mmol/L (136-145) 01/26/24 03:30 Potassium 4.2 mmol/L (3.5-5.1) 01/26/24 03:30 Chloride 110 mmol/L (98-107) H 01/26/24 03:30 Carbon Dioxide 25 mmol/L (22-29) 01/26/24 03:30 Anion Gap 14.2 (5-19) 01/26/24 03:30 BUN 25 mg/dL (8-23) H 01/26/24 03:30 Creatinine 1.1 mg/dL (0.7-1.2) 01/26/24 03:30 GFR Calculation Not Reportable 01/26/24 03:30 Glucose 181 mg/dL (65-115) H 01/26/24 03:30 Calculated Osmolality 309 mOsm/kg (285-295) H 01/26/24 03:30 Calcium 9.9 mg/dL (8.5-10.5) 01/26/24 03:30 Phosphorus 2.8 mg/dL (2.5-4.5) 01/25/24 05:27 Magnesium 2.0 mg/dL (1.7-2.3) 01/25/24 05:27 Total Bilirubin 0.4 mg/dL (0.15-1.2) 01/24/24 18:23 AST 15 U/L (0-40) 01/24/24 18:23 ALT 12 U/L (0-41) 01/24/24 18:23 Alkaline Phosphatase 69 U/L (40-130) 01/24/24 18:23 C-Reactive Protein 16.6 mg/L (0.0-4.9) H 01/25/24 05:27 Total Protein 6.9 g/dL (6.6-8.7) 01/24/24 18:23 Albumin 3.8 g/dL (3.5-5.2) 01/24/24 18:23 Globulin 3.1 g/dL (1.3-4.6) 01/24/24 18:23 Vitals Last Vital Signs Temp 97.7 F 01/26/24 07:13 Pulse 75 01/26/24 07:13 Resp 16 01/26/24 07:13 BP 130/65 01/26/24 07:13 Pulse Ox 96 01/26/24 07:13 O2 Del Method Room Air 01/26/24 07:13 Discharge Plan Discharge Patient Disposition: Home Health Service Condition: Stable Prescriptions: New lisinopril 20 mg tablet 20 mg PO DAILY Qty: 60 0RF Continued metoprolol tartrate 100 mg Tablet 50 mg PO BID Discontinued simvastatin 40 mg Tablet 20 mg PO QPM hydrochlorothiazide 25 mg Tablet 25 mg PO DAILY potassium chloride 20 mEq Tablet Extended Release 20 meq PO BID Discharge Orders: Discharge Order (Routine); Ordered 01/26/24 Ordered By: Camilo Ovalle Referrals: [facility] [Outside] Althea Sterling MD [Primary Care Provider] - (We have notified your physician's clinic of the need for a follow-up appointment to be scheduled. If you have not heard from them within the next 2 business days, please call them directly. ) Patient Instructions: Lisinopril (By mouth), How to Use and Care for Your PEG Tube (GEN), PEG (Percutaneous Endoscopic Gastrostomy) Tube Insertion (GEN), GI Discharge Instructions, Opioid Safety Patient's Health Concerns: Take blood pressure medications if your blood pressure stays above 140/90 mmHg otherwise do not You can start taking metoprolol first to see if your blood pressure stays below 130/80 mmHg which is the goal then add lisinopril on top. Please do not take hydrochlorothiazide. You may start using your PEG tube feeding around 5 PM today Discharge Attestations Time Spent in Discharge Care*: less than 30 min Quality Metrics Clinical Quality Measures [ No reported AMI, CVA or VTE this stay] Coding Level of Care Code Acute Code for Chg Fwd Diagnoses Complication of gastrostomy tube K94.20
[2024-01-26 10:00] VITALS: PULSE 68; RESP 18; O2SAT 97
--- NOTE | 2024-01-26 10:32 | PC.CHAP ---
Pastoral Care Encounter/Spiritual Assessment Type of Contact [] Declined railroad worker visit [] Patient/Family/Request visit [] Outpatient visit [x] Follow-up visit [] Physician referral [] Code/Alert [x] Routine visit [] Staff referral [] Actively dying [] Patient sleeping [] Family support [] [] Out of room [] Palliative care [] [] Receiving care in room [] Pre-surgical visit [] Trauma [] Long length of stay [] ICU visit [] Other: Relational/Emotional Strength [x] Patient feels connected with others/family/visitors/staff [] Distress [] Loneliness/isolation [] Abandonment Spirituality of Patient [x] Person of [place] [x] Attends Taoist of their [place] [x] Believes in Prayer [] Reads Bible or Rastafari materials [] There are Spiritual issues to be addressed Die Cut Operator Interventions [x] Prayer [x] Active listening [x] Non-anxious presence [] Spiritual/emotional support [] Crisis/trauma care [] Spiritual counseling [] Bereavement support [] Provided bereavement packet [] Provided Bible/devotional materials [] Provided toy/stuffed animal, coloring book to patient or family member [] Provided Communion [] Anointing/[place] [] Salvation [] Completed spiritual assessment [] Other: Impact on Illness or Injury [] Angry [] Fearful [] Anxious [] Often cries [] Exhaustion [] Unable to work [] Unable to attend mandaen [] Unable to walk/stand [] Unable to read [] Unable to drive [] Unable to eat/drink [] Unable to sleep [] Unable to be with family [] Patient intubated [] Other: Summary Prayer Time spent with patient 5 min
== END 2024-01-26 10:45 | disposition home health service (06) ==
LOC: ER 19:56 → MEDSURG 19:59
PROVIDERS: Emergency Medicine; Surgery; Admitting Provider Internal Medicine; Emergency Provider Student in an Organized Health Care Education/Training Program; PCP Family Medicine; Visit Provider Internal Medicine
PROC: 0DH63UZ Insertion of Feeding Device into Stomach, Percutaneous Approach (ICD-10-PCS; CPT 43246; principal; 2024-01-25 14:30)
DX: K94.20 Gastrostomy complication, unspecified (principal); C15.9 Malignant neoplasm of esophagus, unspecified; I10 Essential (primary) hypertension; K94.23 Gastrostomy malfunction; E87.0 Hyperosmolality and hypernatremia; E86.0 Dehydration; Z87.891 Personal history of nicotine dependence
CPT/HCPCS: 36415; 43246; 80048; 80053; 83735; 84100; 85025; 86140; 96361; 96374; 96375; 96376; 99285; G0378; J0360; J1100; J2270; J2470; J2704; J3490; J7030; J7121

== ENCOUNTER 2024-03-08 06:25 | Emergency (ER) | payer OTHER, SELFPAY ==
[2024-03-08] VITALS (7 sets, daily range): BP systolic 122–139; BP diastolic 73–85; PULSE 78–96; RESP 16–20; TEMP 36.8; O2SAT 94–99; BMI 22.7
--- NOTE | 2024-03-08 06:37 | ECG_ITS ---
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 Measurements Intervals [place] Rate: 89 P: 91 MA: 132 QRS: 70 QRSD: 81 T: -25 QT: 209 QTc: 255 Interpretive Statements SINUS RHYTHM ANTEROSEPTAL MYOCARDIAL INFARCTION , PROBABLY OLD [40+ ms Q WAVE IN V1-V4] Compared to ECG 05/25/2017 09:26:09 Myocardial infarct finding now present Sinus tachycardia no longer present T-wave abnormality no longer present Electronically Signed On 03-08-2024 16:49:35 CDT by Gigi Duran M.D. [email or web address]
--- NOTE | 2024-03-08 06:51 | XRR_ITS ---
PROCEDURE INFORMATION: Exam: XR Chest Exam date and time: 03/08/2024 7:08 AM Age: 78 years old Clinical indication: Cough and dyspnea; Prior surgery; Surgery date: 6+ months; Surgery type: Throat; Additional info: Dyspnea/cough TECHNIQUE: Imaging protocol: Radiologic exam of the chest. Views: 1 view. COMPARISON: CR XR chest 2V* [id number] 01/01/2024 2:42 PM FINDINGS: Lungs: Unremarkable. No consolidation. Pleural spaces: Unremarkable. No pleural effusion. No pneumothorax. Heart/Mediastinum: Unremarkable. No cardiomegaly. Bones/joints: Old rib fractures noted on the right. XR/XR chest 1V portable [id number] IMPRESSION: No acute findings.
--- NOTE | 2024-03-08 06:52 | ED_ITS ---
HPI - SOB/Dyspnea 2 General: Chief Complaint: Shortness of Breath/Dyspnea Stated Complaint: sob, chest pain Time Seen by Provider: 03/08/24 06:43 History of Present Illness: HPI Narrative: 78-[facility] of [facility]. Patient was diagnosed 3 months ago with an esophageal cancer. He does not have any treatment yet. He has had previously difficulty with his voice female feels like he has difficulty with breathing while at rest. At night it gets even worse. While he was here in the emergency room with complaint and workup he was noted to desat into the mid upper 80s while he was sleeping. Patient does have a history of COPD he has had a PEG tube placed. No hemoptysis. On room air while awake and upright his oxygen sats are in the upper 90s. He is not on supplemental oxygen at home. He did see ENT in [place] (he could not tell me this until late in the visit) yesterday and did a laryngoscope and suggested that he may need to wear oxygen at times. Associated symptoms: Deny abdominal pain, chest pain or fever(s) Related Data Home Medications Medication Instructions Recorded Confirmed metoprolol tartrate 100 mg tablet 50 mg PO BID 01/25/24 03/08/24 simvastatin 40 mg tablet 20 mg PO QPM 03/08/24 03/08/24 trazodone 100 mg tablet 50 mg PO QPM 03/08/24 03/08/24 Previous Rx's Medication Instructions Recorded lisinopril 20 mg tablet 20 mg PO DAILY #60 tabs 01/26/24 Allergies Allergy/AdvReac Type Severity Reaction Status Date / Time No Known Allergies Allergy Verified 06/29/22 15:44 Review of Systems 2 Const: Denies: fever(s) or chills ENMT: Reports: other (Change in voice) Card: Denies: chest pain Resp: Reports: dyspnea; Denies: non-productive cough or wheezing GI: Denies: abdominal pain : Denies: dysuria, urinary frequency or urinary urgency Musc: Denies: neck pain or back pain Skin/Breast: Denies: rash PFSH ED 2 PFSH: Medical History Below knee amputation History of gastrostomy tube placement Esophageal cancer No pertinent past medical history Amputation above knee Social History Smoking and tobacco/nicotine status: current every day tobacco/nicotine user Physical Exam 2 Const: GENERAL APPEARANCE: cooperative ORIENTATION/CONSCIOUSNESS: Yes awake, Yes oriented to person, Yes oriented to place and Yes oriented to time HENMT: COMMON NORMALS: normocephalic, atraumatic and hearing grossly normal bilaterally HEAD & SCALP: normocephalic and atraumatic OTHER: Hoarse voice with mild stridor Resp: COMMON NORMALS: normal respiratory effort, No retractions, No use of accessory muscles and clear to auscultation bilaterally AUSCULTATION: clear to auscultation bilaterally Cardio: COMMON NORMALS: regular rate, regular rhythm and No murmurs present (Cardio) RATE: regular rate RHYTHM: regular rhythm GI: COMMON NORMALS: Soft to palpation and No hepatosplenomegaly present A USCULTATION: Yes normoactive bowel sounds PALPATION: Yes Soft to palpation, No Tenderness to palpation present (GI), No Guarding due to palpation present (GI) and Yes No hepatosplenomegaly present Extremity: COMMON NORMALS: normal to inspection, capillary refill normal, no clubbing, cyanosis or edema, no calf tenderness and no pedal edema Neuro: SENSORIUM/ORIENTATION: Yes oriented to person, Yes oriented to place and Yes oriented to time Skin: COMMON NORMALS: no rashes or lesions noted GENERAL SKIN EXAM: no rashes or lesions noted Course 2 Vital Signs: Vital signs: Vital Signs Temperature 98.3 F 03/08/24 06:35 Pulse Rate 94 03/08/24 12:03 Respiratory Rate 16 03/08/24 07:20 Blood Pressure 133/80 03/08/24 12:03 Pulse Oximetry 95 03/08/24 12:03 Oxygen Delivery Me thod Room Air 03/08/24 12:02 MDM - SOB/Dyspnea Medical Decision Making CT of the neck shows paralysis of left vocal cord which is consistent with a stridor with hearing his sats remain good unless he does of sleeps and he will desat into the 80s upper 80s mid 80s. She recovers immediately when the patient is awake and alert. He is not having any chest pain because of his risk of PE with his cancer we did do a CTA of his chest there was no pulmonary embolism noted. I discussed with Dr. Lion who read his films also discussed case with ENT who is on-call. Dr. Lion and Dr. Oconnell did not feel that based on the scan that his airway is significantly compromised requiring aggressive intervention at this time. Dr. Oconnell did not recommend steroids as it will not improve his vocal cord paralysis which is the main cause of his sense of dyspnea. We are going to check and see if we can get him qualified for oxygen based on the observation of his desaturations when sleeping in the emergency room Patient formally he had a nasolaryngoscopy yesterday at ENT in [place]. We have made arrangements for him to see hole later today but will cancel that since he just had it yesterday. I do not think and qualify him out of the ER for oxygen, but I do believe he may benefit from at night. [facility] to get him to qualify for the oxygen. Medical Records I reviewed the patient's medical records. Lab Data I reviewed the patient's lab results. 03/08/24 06:45 03/08/24 06:45 Labs/Radiology: Radiology Impressions Chest X-Ray 03/08/24 06:51 IMPRESSION: No acute findings. Chest CTA 03/08/24 07:26 IMPRESSION: 1. No evidence of pulmonary embolus. Neck CT 03/08/24 07:26 IMPRESSION: 1. Diffuse soft tissue thickening and enhancement involving the hypopharynx extending to the thoracic esophagus suspicious for neoplasm. This is progressed compared to previous. Recommend further evaluation with endoscopy and correlation with history. 2. Mild lymph node enlargement at the thoracic inlet and partially visualized mediastinum. 3. Leftward deviation of the LEFT true vocal cord may be due to chronic vocal cord paralysis but indeterminant. 4. High-grade stenosis RIGHT proximal ICA with a tiny string-like residual ICA similar to the prior study. Laboratory Results WBC 12.05 10^3/uL (3.29-11.43) H 03/08/24 06:45 RBC 4.19 10^6/uL (3.85-5.65) 03/08/24 06:45 Hgb 12.30 g/dL (11.27-16.99) 03/08/24 06:45 Hct 39.3 % (37-53) 03/08/24 06:45 MCV 93.8 fl (82-101) 03/08/24 06:45 MCH 29.4 pg (27-33) 03/08/24 06:45 MCHC 31.3 g/dL (30-55) 03/08/24 06:45 RDW 15.9 % (12.1-15.1) H 03/08/24 06:45 Plt Count 241 10^3/cmm (157-399) 03/08/24 06:45 MPV 10.8 fL (7.4-10.4) H 03/08/24 06:45 Neut % (Auto) 69.7 % 03/08/24 06:45 Lymph % (Auto) 18.9 % 03/08/24 06:45 [place] % (Auto) 8.6 % 03/08/24 06:45 Eos % (Auto) 2.1 % 03/08/24 06:45 Baso % (Auto) 0.5 % 03/08/24 06:45 Neut # (Auto) 8.39 10^3/uL (1.8-7.7) H 03/08/24 06:45 Lymph # (Auto) 2.3 10^3/uL (0.8-4.8) 03/08/24 06:45 [place] # (Auto) 1.0 10^3/uL (0.2-0.9) H 03/08/24 06:45 Eos # (Auto) 0.3 10^3/uL (0.0-0.8) 03/08/24 06:45 Baso # (Auto) 0.1 10^3/uL (0.0-0.1) 03/08/24 06:45 Nucleated RBC % (auto) 0 % 03/08/24 06:45 Nucleated RBCs # 0.0 /100WBC 03/08/24 06:45 Sodium 142 mmol/L (136-145) 03/08/24 06:45 Potassium 4.3 mmol/L (3.5-5.1) 03/08/24 06:45 Chloride 100 mmol/L (98-107) 03/08/24 06:45 Carbon Dioxide 31 mmol/L (22-29) H 03/08/24 06:45 Anion Gap 15.3 (5-19) 03/08/24 06:45 BUN 41 mg/dL (8-23) H 03/08/24 06:45 Creatinine 1.2 mg/dL (0.7-1.2) 03/08/24 06:45 GFR Calculation Not Reportable 03/08/24 06:45 Glucose 105 mg/dL (65-115) 03/08/24 06:45 Calculated Osmolality 304 mOsm/kg (285-295) H 03/08/24 06:45 Calcium 10.5 mg/dL (8.5-10.5) 03/08/24 06:45 Total Bilirubin 0.4 mg/dL (0.15-1.2) 03/08/24 06:45 AST 19 U/L (0-40) 03/08/24 06:45 ALT 15 U/L (0-41) 03/08/24 06:45 Alkaline Phosphatase 102 U/L (40-130) 03/08/24 06:45 Troponin T Baseline 24 ng/L (0-15) H 03/08/24 06:45 Troponin T 120 Minute 20.08 ng/L (0-15) H 03/08/24 09:05 Delta Troponin T -3.92 ABS# (0-10) L 03/08/24 09:05 Total Protein 7.8 g/dL (6.6-8.7) 03/08/24 06:45 Albumin 4.4 g/dL (3.5-5.2) 03/08/24 06:45 Globulin 3.4 g/dL (1.3-4.6) 03/08/24 06:45 Urine Color Yellow (Yellow) 03/08/24 07:21 Urine Appearance Clear (CLEAR) 03/08/24 07:21 Urine pH 5.5 (5-7) 03/08/24 07:21 Ur Specific [place] 1.020 (1.005-1.030) 03/08/24 07:21 Urine Protein 3+ (Negative) A 03/08/24 07:21 Urine Glucose (UA) Negative (Normal) 03/08/24 07:21 Urine Ketones Negative (Negative) 03/08/24 07:21 Urine Blood Negative (Negative) 03/08/24 07:21 Urine Nitrate Negative (Negative) 03/08/24 07:21 Urine Bilirubin Negative (Negative) 03/08/24 07:21 Urine Urobilinogen 1.0 mg/dL (Negative) 03/08/24 07:21 Ur Leukocyte Esterase Negative (Negative) 03/08/24 07:21 Urine RBC 3-5 /hpf (0-2) 03/08/24 07:21 Urine WBC 0-5 /hpf (0-5) 03/08/24 07:21 Ur Squamous Epith Cells 0-5 /hpf (0-5) 03/08/24 07:21 Amorphous Sediment Not Reportable 03/08/24 07:21 Urine Bacteria None seen /hpf (NONE) 03/08/24 07:21 Hyaline Casts 3.71 /lpf 03/08/24 07:21 Coronavirus (PCR) Negative (Negative) 03/08/24 07:00 Influenza A (PCR) Negative (Negative) 03/08/24 07:00 Influenza Type B (PCR) Negative (Negative) 03/08/24 07:00 RSV (PCR) Negative (Negative) 03/08/24 07:00 All radiology interpretation(s) finalized by discharge Discharge Plan Discharge Patient Disposition: Home Clinical Impression: Esophageal cancer, Paralysis of vocal cords and larynx, unilateral Condition: Stable Prescriptions: No Action simvastatin 40 mg Tablet 20 mg PO QPM trazodone 100 mg Tablet 50 mg PO QPM metoprolol tartrate 100 mg Tablet 50 mg PO BID lisinopril 20 mg tablet 20 mg PO DAILY Qty: 60 0RF Discharge Orders: Discharge ED (Routine); Ordered 03/08/24 Ordered By: Cristian Valero Referrals: Althea Sterling MD [Primary Care Provider] - Patient Instructions: Opioid Safety, Pain Management Activity Restrictions/Additional Instructions: Thank you for choosing [facility] for your healthcare needs today. It is very important that you follow up as instructed or that you return to the Emergency Department should you have concerns or if your condition changes or worsens in any way. You were seen in the emergency room today with complaints of some shortness of breath. This is caused by paralysis of your vocal cord which is likely result of your esophageal cancer. There is no significant compromise of your airway at this time. You do appear to require oxygen while sleeping based on her observations in the emergency room. You should follow-up with your primary care doctor or oncologist and ENT doctor soon as you are able. Recommend sleeping upright. Coding Level of Care Code ED [place] for Chg Fareed
[2024-03-08 07:11] LABS: Basophils # 0.1 10^3/uL (0.0-0.1); Basophils % 0.5 %; Eosinophils # 0.3 10^3/uL (0.0-0.8); Eosinophils % 2.1 %; Hematocrit 39.3 % (37-53); Lymphocytes # 2.3 10^3/uL (0.8-4.8); Lymphocytes % 18.9 %; Mean Corpuscular HGB Conc 31.3 g/dL (30-55); Mean Corpuscular Hemoglobin 29.4 pg (27-33); Mean Corpuscular Volume 93.8 fl (82-101); Mean Platelet Volume 10.8 fL (7.4-10.4); Monocytes % 8.6 %; Neutrophils # 8.39 10^3/uL (1.8-7.7); Neutrophils % 69.7 %; Nucleated Red Blood Cells % 0 %; Platelet Count 241 10^3/cmm (157-399); Red Blood Count 4.19 10^6/uL (3.85-5.65); Red Cell Distribution Width 15.9 % (12.1-15.1); White Blood Count 12.05 10^3/uL (3.29-11.43)
[2024-03-08] MEDS: methylPREDNISolone sod succ 125 mg/2 mL INJ IVP (07:14)
[2024-03-08] MEDS: ipratropium-albuterol 3 mL Neb INHALATION (07:18)
[2024-03-08 07:19] LABS: Troponin(5th) Baseline 24 ng/L (0-15)
[2024-03-08 07:22] LABS: Alanine Aminotransferase 15 U/L (0-41); Albumin Level 4.4 g/dL (3.5-5.2); Alkaline Phosphatase 102 U/L (40-130); Anion Gap 15.3 (5-19); Aspartate Amino Transferase 19 U/L (0-40); Blood Urea Nitrogen 41 mg/dL (8-23); Calcium 10.5 mg/dL (8.5-10.5); Carbon Dioxide 31 mmol/L (22-29); Chloride 100 mmol/L (98-107); Globulin 3.4 g/dL (1.3-4.6); Glucose 105 mg/dL (65-115); Osmolality Calculated 304 mOsm/kg (285-295); Potassium 4.3 mmol/L (3.5-5.1); Sodium 142 mmol/L (136-145); Total Bilirubin 0.4 mg/dL (0.15-1.2); Total Protein 7.8 g/dL (6.6-8.7)
[2024-03-08 07:24] LABS: Slide Review Slide Review Perform
--- NOTE | 2024-03-08 07:26 | CT_ITS ---
WS: [id number] CTA OF THE CHEST WITH PULMONARY EMBOLISM PROTOCOL TECHNIQUE: High-resolution contrast enhanced CTA of the chest with coronal and sagittal reformatted i mages with pulmonary embolism protocol. MIP images are also reviewed. CLINICAL INFORMATION: Dyspnea history of esophageal CA COMPARISON: None. DLP: 83.[address] scans at [facility] use at least one of these dose optimization techniques: automated e xposure control; mA and/or kV adjustment per patient size (includes targeted exams where dose is matc hed to clinical indication); or iterative reconstruction. FINDINGS: Proximal main pulmonary arteries are normal. Normal segmental and subsegmental pulmonary arteries. No evidence of pulmonary embolus. Normal caliber thoracic aorta. Aortic calcification. Small nodule RIGHT lower lobe measuring 5 mm. 12.2 x 7.0 cm partially visualized large RIGHT renal cyst. Multicystic LEFT kidney. Celiac and SMA pa tent in the upper abdomen. Gastrostomy tube. Chronic RIGHT rib fractures with callus formation. CT/CT angio chest PE protcl [id number] IMPRESSION: 1. No evidence of pulmonary embolus.
--- NOTE | 2024-03-08 07:26 | CT_ITS ---
WS: [id number] CT NECK TECHNIQUE: Contrast-enhanced CT of the neck with coronal and sagittal reformatted images. CLINICAL INFORMATION: Dysphagia history of esophageal CA COMPARISON: 12/18/2023 DLP: 216.[address] scans at [facility] use at least one of these dose optimization techniques: automated e xposure control; mA and/or kV adjustment per patient size (includes targeted exams where dose is matc hed to clinical indication); or iterative reconstruction. FINDINGS: Diffuse soft tissue thickening with enhancement involving the hypopharynx is progressed compared to p revious. Associated diffuse and surrounding soft tissue enhancement. This extends into the thoracic e sophagus. Mild deviation of the LEFT true vocal cord. The supraglottic and glottic larynx remain farr nt. Subglottic larynx remains patent. Small thyroid nodules. Lung apices are well aerated. Ulcerated atheromatous aortic arch. Carotid bulb calcification with high-grade stenosis of the RIGHT proximal ICA with a tiny residual lumen similar to previous. Moderate spondylitic changes cervical spine. Mild to moderate central canal stenosis C5- 6. Paranasal sinuses and mastoid air cells are well aerated. Parotid glands are normal. Submandibular glands are normal. Enlarged lymph nodes partially visualized in the thoracic inlet and anterior medi astinum. CT/CT neck w con* [id number] IMPRESSION: 1. Diffuse soft tissue thickening and enhancement involving the hypopharynx ex tending to the thoracic esophagus suspicious for neoplasm. This is progressed c ompared to previous. Recommend further evaluation with endoscopy and correlatio n with history. 2. Mild lymph node enlargement at the thoracic inlet and partially visualized mediastinum. 3. Leftward deviation of the LEFT true vocal cord may be due to chronic vocal cord paralysis but indeterminant. 4. High-grade stenosis RIGHT proximal ICA with a tiny string-like residual ICA similar to the prior study.
--- NOTE | 2024-03-08 07:32 | PC.PHAR ---
Patient states he is taking a statin and a sleeping pill. We will call [facility] when they open at 8:30am
[2024-03-08 07:56] LABS: Bacteria Urine None Seen /hpf; Hyaline Casts Urine 3.71 /lpf; Squamous Epithelial Cell Urine 0-5 /hpf (0-5); WBC Urine 0-5 /hpf (0-5)
[2024-03-08 08:02] LABS: Add Urine Microscopic? YES; Bilirubin Urine Negative (Negative); Blood Urine Negative (Negative); Glucose Urine UA Negative (Normal); Ketones Urine Negative (Negative); Leukocyte Esterase Urine Negative (Negative); Nitrate Urine Negative (Negative); Protein Urine 3+ (Negative); Urine Color Yellow (Yellow); pH Urine 5.5 (5-7)
[2024-03-08 08:06] LABS: Urine Appearance Clear (CLEAR)
[2024-03-08 08:28] LABS: Covid PCR NEGATIVE (Negative); Influenza A NEGATIVE (Negative); Influenza B NEGATIVE (Negative); Respiratory Syncytial Virus Ce NEGATIVE (Negative)
[2024-03-08] MEDS: iohexol 350 mg/mL 500 mL Btl (per mL) IV ×2 (08:51)
--- NOTE | 2024-03-08 09:09 | PC.PHAR ---
Verified 2 meds with [facility] . Patient states he takes Statin and a sleeping med but unable to locate .
--- NOTE | 2024-03-08 09:18 | ECG_ITS ---
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 Measurements Intervals [place] Rate: 104 P: 79 GA: 130 QRS: 68 QRSD: 88 T: 90 QT: 335 QTc: 441 Interpretive Statements SINUS TACHYCARDIA POSSIBLE ANTERIOR MYOCARDIAL INFARCTION , PROBABLY OLD [30 ms Q WAVE IN V3/V4, OR R < 0.2 mV IN V4] ABNORMAL RHYTHM ECG Diffuse nonspecific T wave changes Compared to ECG 03/08/2024 06:37:51 Sinus rhythm no longer present Myocardial infarct finding still present Electronically Signed On 03-08-2024 16:54:12 CDT by Gigi Duran M.D. [id number]
[2024-03-08 09:33] LABS: Troponin 5 2HR 20.08 ng/L (0-15)
[2024-03-08 09:35] LABS: Troponin 5 2HR Delta -3.92 ABS# (0-10)
--- NOTE | 2024-03-08 11:29 | PC.PHAR ---
[facility]
== END 2024-03-08 12:05 | disposition home or self-care (01) ==
PROVIDERS: Emergency Provider Family Medicine; PCP Family Medicine
DX: C15.9 Malignant neoplasm of esophagus, unspecified (principal); J38.01 Paralysis of vocal cords and larynx, unilateral; Z72.0 Tobacco use; J44.9 Chronic obstructive pulmonary disease, unspecified
CPT/HCPCS: 0241U; 36415; 70491; 71045; 71275; 80053; 81001; 84484; 85025; 93005; 94640; 96374; 99285; J2919